=== PATIENT | male | born 1975 | race Caucasian/White ===

== ENCOUNTER 2016-06-28 17:19 | Observation (INO) | payer BC ==
--- NOTE | ~2016-06-28 | CR72 ---
[facility] A Service of [facility] & [facility] RADIOLOGY TEXT RESULTS PATIENT: NOEMI OMER LOCATION: [facility] 560-01 : [birth year] UNIT #: [id number] AGE: [address]: Tonio Almonte MD SEX: M ORDER DR: [id number] [facility] [address] [facility]. [place], [place] [address] [id number] MR#: [id number] Acc #: [id number] NAME: NOEMI OMER. : 1975 SEX: M STUDY DATE/TIME: 06/28/2016 17:33 UNIT: [facility] ROOM: [facility] STUDY DESCRIPTION: CR Chest Single View Portable Attending Physician: Tonio Almonte M.D. Ordering Physician: Jae Rivero M.D. Primary Care Physician: Primary Care Physician No MEDICAL IMAGING REPORT This report is preliminary unless electronic signature is present EXAM Portable AP view of the chest. COMPARISON November 22, 2010 and March 17, 2010. INDICATIONS 41-year-old male with chest pain radiating to both arms as well as dyspnea today. FINDINGS Cardiomediastinal silhouette is normal. No pneumothorax, pleural effusion or acute airspace disease. IMPRESSION Normal exam. Dictated by... Allen Pan M.D. THIS IS AN ELECTRONICALLY VERIFIED REPORT Allen Pan M.D. at 07/01/2016 9:33 AM MARK/andria TD: 06/28/2016 23:07 JOB #: [id number] MEDICAL IMAGING REPORT Page 1 of 1 COPY
--- NOTE | ~2016-06-28 | ST ---
Unit #: [id number] #: [id number] Patient: NOEMI OMER [id number] [address] [address] [id number] I MR#: [id number] NAME: NOEMI OMER. : 1975 SEX: M STUDY DATE/TIME: 06/29/2016 UNIT: C5B ROOM: 560 STUDY DESCRIPTION: Stress nuclear/ECG combined Attending Physician: Tonio Almonte M.D. Primary Care Physician: No Primary Care Physician CARDIOLOGY REPORT EXAM Stress nuclear and ECG combined. INDICATIONS Chest pain, abnormal ECG. SUMMARY Patient exercised on a Flaco protocol to maximal effort. Patient was given technetium 99 Cardiolite, 11.56 and 35.8 mCi, at rest and stress, respectively. Appropriate views were obtained. FINDINGS The resting ECG was abnormal with J point depression and 0.[address] depression in leads II, III, aVF and V6. With stress, there were single PVCs; but no diagnostic ST shifts, no dysrhythmias, and no heart block. Patient completed 10 minutes and 52 seconds of exercise. Heart rate increased from 82 to 157 (88%) and blood pressure increased, 111/73 to 165/80. Perfusion images demonstrated normal perfusion throughout the myocardium both at rest and stress. Gated perfusion wall motion analysis demonstrates normal wall motion throughout the myocardium with end diastolic volume 102 mL and ejection fraction 64%. Summed stress score is 0. Summed difference score is 0. Planar imaging demonstrates no significant patient motion either at rest or stress. There is no significant lung uptake or LV or RV enlargement. IMPRESSION 1. Myocardial perfusion scan demonstrates no ischemia or infarction. 2. Normal wall motion with excellent ejection fraction. Dictated by... Abel Modi/josh TD: 06/30/2016 07:50 JOB #: [id number] Unit #: [id number] #: [id number] Patient: NOEMI OMER CARDIOLOGY REPORT Page 1 of 1 X Tonio Almonte MD CARDIOLOGY REPORT
--- NOTE | ~2016-06-28 | TH ---
Unit #: [id number] #: [id number] Patient: NOEMI OMER [id number] [address] [address] [id number] I MR#: [id number] NAME: NOEMI OMER. : 1975 SEX: M STUDY DATE/TIME: 06/29/2016 UNIT: C5B ROOM: 560 STUDY DESCRIPTION: Stress nuclear Attending Physician: Tonio Almonte M.D. Primary Care Physician: No Primary Care Physician CARDIOLOGY REPORT EXAM Stress nuclear. FINDINGS Result text under stress test report. Please see this report for result text. Dictated by... Abel Modi/josh TD: 06/30/2016 08:04 JOB #: [id number] CARDIOLOGY REPORT Page 1 of 1 X Tonio Almonte MD CARDIOLOGY REPORT
--- NOTE | ~2016-06-28 | EKG ---
PATIENT: NOEMI OMER UNIT #: [id number] Ventricular Rate: 74 BPM Atrial Rate: 74 BPM P-R Interval: 176 ms QRS Duration: 100 ms Q-T Interval: 386 ms QTC Calculation(Bezet): 428 ms P [place]: 36 degrees Calculated R [place]: 11 degrees Calculated T [place]: 33 degrees Diagnosis Line: Normal sinus rhythm Diagnosis Line: Normal ECG Diagnosis Line: No previous ECGs available Diagnosis Line: Confirmed by GERARD OLIVARES MD ([id number]) on 06/29/2016 Diagnosis Line: 9:18:15 PM INTERPRETING MD: MARSHALL ZARAGOZA
--- NOTE | ~2016-06-28 | HP ---
Unit #: [id number] #: [id number] Patient: NOEMI ESTRADA [id number] [address] [place], [place] [address] [id number] I MR#: [id number] NAME: NOEMI ESTRADA. ROOM: [facility] Age: 41 Sex: M Admission Date: 06/28/2016 : 1975 Attending Physician: Tonio Almonte M.D. Primary Care Physician: No Primary Care Physician HISTORY AND PHYSICAL CHIEF COMPLAINT Chest discomfort. HISTORY OF PRESENT ILLNESS Mr. Estrada is a 41-year-old white male who was admitted with constant chest discomfort since yesterday. He awoke with left sided chest discomfort that radiated to his bilateral arms. No nausea, no vomiting, no diaphoresis, no shortness of air. At time of interview, it is still present and has been constant without anything providing relief. He received full dose aspirin, GI cocktail as well as nitroglycerin sublingual x3 in the emergency room which did not resolve his discomfort. PAST MEDICAL HISTORY Heartburn and reflux. The patient denies history of hypertension, denies diabetes, denies dyslipidemia. Positive family history for premature arteriosclerotic heart disease. Positive tobacco abuse. SOCIAL HISTORY Smokes one to one and a half packs per day since the age of 16. Also chews wintergreen tobacco. Alcohol - approximately six beers per week. 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 Denies IV drug use. FAMILY HISTORY Mother with a myocardial infarction at the age of 60. Maternal grandfather had coronary artery bypass grafting x3 at the age of 47 and in his late 50s/early 60s. HOME MEDICATIONS Zantac [id number] daily. No other medications. ALLERGIES No known allergies. REVIEW OF SYSTEMS Negative fevers, chills, negative cough. No bronchitis, no sinusitis, no difficulty swallowing, no shortness of air, no dyspnea on exertion, no orthopnea, no paroxysmal nocturnal dyspnea, no lower extremity edema. Positive for constant reflux stating that chewing the wintergreen tobacco gives him reflux. No melena, no bright red bleeding per rectum, no hematochezia. No dysuria, no hematuria, no gait disturbance, no lower extremity edema, no seizures. DIAGNOSTIC STUDIES Unit #: [id number] #: [id number] Patient: NOEMI ESTRADA IMAGING: Chest x-ray shows a normal exam. No pneumothorax, no pleural effusion, no airspace disease. LABORATORY: Chemistry - sodium 140, potassium 3.7, chloride 104, CO2 26, BUN 13, creatinine 1.1, glucose 106, AST 23, ALT 26, total protein 7.6, albumin 4.6. Troponin less than 0.03, troponin less than 0.03. Point of care troponin less than 0.05 and less than 0.05. Hemoglobin 15.0, hematocrit 44.6, white blood cell count 6.3, platelet count 217. CARDIOVASCULAR: 12-lead EKG shows a normal sinus rhythm, no ST depression, no ST elevation, no T wave abnormality. ASSESSMENT AND PLAN Atypical chest pain with troponin negative x4. Negative EKG, negative chest x-ray. The patient has undergone a Cardiolite treadmill stress test at time of this dictation, monitored by me. Echo is pending. The patient will be followed up by Dr. Tonio Almonte for any further recommendations. Dictated by Treasure Holly A.P.R.N. for Tonio Almonte M.D. ROYAL/levi TD: 06/29/2016 12:27 JOB #: [id number] HISTORY AND PHYSICAL Page 1 of 1 X X HISTORY AND PHYSICAL
[2016-06-28 17:07] LABS: BASOPHIL% 0.4 % (0-2.5); EOSINOPHIL# 0.2 X10e3 (0-0.7); EOSINOPHIL% 2.5 % (0.0-7.0); HEMATOCRIT 44.6 % (38.0-50.0); LYMPHOCYTE# 2.4 X10e3 (1.0-3.5); LYMPHOCYTE% 38.4 % (17.0-45.0); MEAN CELL VOLUME 86.6 FL (83-96); MEAN CORPUSCULAR HEMOGLOBIN 29.1 PG (28-34); MEAN CORPUSCULAR HGB CONC 33.6 g/dL (30-36); MEAN PLATELET VOLUME 8.9 FL (6.5-11.5); MONOCYTE# 0.6 X10e3 (0-1.0); MONOCYTE% 8.9 % (3.0-12.0); NEUTROPHIL# 3.1 X10e3 (1.5-7.1); NEUTROPHIL% 49.8 % (40-75); PLATELET COUNT 217 X10e3 (140-420); RED BLOOD COUNT 5.15 X10e (3.90-5.60); RED CELL DISTRIBUTION WIDTH 13.9 % (11.0-15.5); WHITE BLOOD COUNT 6.3 X10e3 (4.0-10.5)
[~2016-06-28 17:19] MED LIST: BACTRIM DS TABL1 TA1 PO; BACTRIM DS TABL1 TAB PO; DICLOFENAC PO; TETRACYCLINE PO; ULTRAM PO
[2016-06-28 17:33] LABS: DIFF IND NO
[2016-06-28 17:46] LABS: ALBUMIN SERUM 4.6 g/dL (3.5-5.0); BILIRUBIN, DIRECT 0.1 mg/dL (0.0-0.2); BILIRUBIN,INDIRECT 0.4 mg/dL (0.0-0.9); BILIRUBIN,TOTAL 0.5 mg/dL (0.2-2.0); BUN/CREATININE RATIO 11.81; CALCIUM SERUM 9.3 mg/dL (8.4-10.2); CREATININE SERUM 1.1 mg/dL (0.6-1.4); GLOM FILT RATE Estimated 81.8 mL/min (>60); POTASSIUM 3.7 mmol/L (3.5-5.1); PROTEIN TOTAL SERUM 7.6 g/dL (6.0-8.3)
[2016-06-28 17:51] LABS: POC - CKMB 1.3 ng/mL (0.0-7.9); POC - TROPONIN <0.05 ng/mL (<=0.05)
[2016-06-28] MEDS ORDERED: ZANTAC PO (18:41)
[2016-06-28 18:53] LABS: POC - CKMB <1.0 ng/mL (0.0-7.9); POC - TROPONIN <0.05 ng/mL (<=0.05)
[2016-06-29 01:39] LABS: %MB 1.4 % (0.0-4.0); MB 2.2 ng/ml
[2016-06-29 07:19] LABS: %MB 1.3 % (0.0-4.0); MB 1.8 ng/ml
== END 2016-06-29 21:15 | disposition home or self-care (01) | DRG 313 ==
LOC: CED 17:19 → CEDOF 18:43 → C5B 21:11
PROVIDERS: Emergency Medicine
DX: R07.89 Other chest pain (principal); K21.9 Gastro-esophageal reflux disease without esophagitis; F17.200 Nicotine dependence, unspecified, uncomplicated; F17.220 Nicotine dependence, chewing tobacco, uncomplicated; Z82.49 Family history of ischemic heart disease and other diseases of the circulatory system; Z79.899 Other long term (current) drug therapy
CPT/HCPCS: 36415; 71010; 78452; 80048; 80076; 82550; 82553; 84484; 85025; 93005; 93017; 93306; 99285; A9500; G0378